=== PATIENT | male | born 1970 | race Hispanic/Latino ===

== ENCOUNTER 2017-12-14 12:51 | Observation (INO) | payer OTHER ==
[~2017-12-14] VITALS: Ht 160 cm; Wt 101.1 kg
[2017-12-14 13:18] LABS: BASOPHILS % (AUTO) 0.1 % (0.0-5.0); EOSINOPHILS % (AUTO) 2.6 % (0.0-8.0); HEMATOCRIT 45.1 % (42-54); LYMPHOCYTES % (AUTO) 25.9 % (21.0-51.0); MEAN CORPUSCULAR HEMOGLOBIN 31.8 pg (27.0-33.0); MEAN CORPUSCULAR HGB CONC 34.1 g/dL (32.0-36.0); MEAN CORPUSCULAR VOLUME 93.2 fL (79-99); MONOCYTES % (AUTO) 8.5 % (3.0-13.0); NEUTROPHILS % (AUTO) 62.9 % (40.0-77.0); PLATELET COUNT (AUTO) 190 K/uL (130-400); RED BLOOD CELL COUNT(AUTO) 4.84 MIL/uL (4.50-6.20)
[2017-12-14 13:29] LABS: CREATININE 0.9 mg/dL (0.5-1.5); POTASSIUM 3.7 mmol/L (3.5-5.1)
[2017-12-14 13:42] LABS: INR 0.95 (0.85-1.15); PARTIAL THROMBOPLASTIN TIME 22.8 SEC (26.3-35.5); PROTHROMBIN TIME 9.8 SEC (9.6-11.6)
[2017-12-14 13:43] LABS: ALBUMIN 3.9 g/dL (3.5-5.0); BILIRUBIN,TOTAL 0.3 mg/dL (0.2-1.0); TOTAL PROTEIN, SERUM 8.4 g/dL (6.0-8.3)
[2017-12-14] MEDS ORDERED: SODIUM CHLORIDE 0.9% 1000ML 1,000 ML IV ONE (14:27)
[2017-12-14] MEDS ORDERED: ONDANSETRON HCL MDV 20ML 2 MG/ML VIAL IV PRN (15:45)
[2017-12-14] MEDS ORDERED: MECLIZINE HCL 25 MG TABLET PO PRN (15:45)
[2017-12-14] MEDS ORDERED: HYDRALAZINE HCL 20 MG/ML VIAL IV PRN (15:45)
[2017-12-14] MEDS ORDERED: ACETAMINOPHEN 325 MG TAB PO PRN (15:45)
[2017-12-14] MEDS ORDERED: LACTULOSE 20 GM/30 ML UDCUP PO PRN (15:45)
[2017-12-14] MEDS ORDERED: SODIUM CHLORIDE 0.9% 1000ML 1,000 ML IV SCH (16:45)
[2017-12-14 17:16] LABS: APPEARANCE,URINE Clear (CLEAR); BILIRUBIN,URINE Negative (NEGATIVE); COLOR,URINE Yellow (YELLOW); GLUCOSE, URINE (UA) Negative (NEGATIVE); KETONES,URINE Trace mg/dL (NEGATIVE); LEUKOCYTE ESTERASE ,URINE Negative (NEGATIVE); NITRATE,URINE Negative (NEGATIVE); OCCULT BLOOD,URINE Negative (NEGATIVE); PH,URINE 5.5 (5.0-8.0); PROTEIN,URINE Negative (NEGATIVE)
[2017-12-14 19:35] VITALS: BP 138/78
[2017-12-14 19:37] VITALS: BP 141/85
[2017-12-14 19:39] VITALS: BP 143/85
[2017-12-14] MEDS: FAMOTIDINE 20MG TAB 20 MG TAB PO SCH (20:55)
[2017-12-14 23:45] VITALS: BP 136/83
[2017-12-15 03:20] LABS: HEMATOCRIT 41.3 % (42-54); MEAN CORPUSCULAR HEMOGLOBIN 32.2 pg (27.0-33.0); MEAN CORPUSCULAR HGB CONC 34.1 g/dL (32.0-36.0); MEAN CORPUSCULAR VOLUME 94.3 fL (79-99); PLATELET COUNT (AUTO) 147 K/uL (130-400); RED BLOOD CELL COUNT(AUTO) 4.37 MIL/uL (4.50-6.20); RED CELL DISTRIBUTION WIDTH 14.5 % (11.0-15.5); WHITE BLOOD COUNT (AUTO) 7.8 K/uL (4.8-10.8)
[2017-12-15 03:41] LABS: CARBON DIOXIDE 32 mmol/L (21-32); CHLORIDE 106 mmol/L (101-111); CHOLESTEROL 144 mg/dL (<200); CREATINE KINASE MB 3.1 ng/mL (0.5-3.6); CREATINE KINASE, TOTAL 175 U/L (21-232); CREATININE 0.8 mg/dL (0.5-1.5); GLOMERULAR FILTR. RATE CALC 110 mL/min (>60); GLUCOSE,RANDOM 122 mg/dL (70-105); HDL CHOLESTEROL 74 mg/dL (29-71); LDL DIRECT 73 mg/dL (0-99); MYOGLOBIN 27 ng/mL (10-92); POTASSIUM 3.9 mmol/L (3.5-5.1); SODIUM SERUM 144 mmol/L (136-145); TRIGLYCERIDES 47 mg/dL (30-200); TROPONIN I < 0.04 ng/mL (0.00-0.06); UREA NITROGEN, BLOOD 12 mg/dL (7-18)
[2017-12-15 03:44] LABS: HEMOGLOBIN A1C 5.7 % (4.0-6.0)
[2017-12-15 03:45] VITALS: BP 142/81
[2017-12-15 08:06] VITALS: BP 143/92
[2017-12-15] MEDS: FAMOTIDINE 20MG TAB 20 MG TAB PO SCH (10:39)
[2017-12-15 11:51] VITALS: BP 135/98
[2017-12-15 11:52] VITALS: BP 145/86
[2017-12-15 11:53] VITALS: BP 143/94
[2017-12-15 15:21] VITALS: BP 126/87
== END 2017-12-15 17:00 | disposition home or self-care (01) ==
LOC: EDH 12:51 → EDHIP 15:45 → 3AH 19:23
PROVIDERS: ADMIT Family Medicine; ATTEND Family Medicine
DX: I95.1 Orthostatic hypotension (principal); R42 Dizziness and giddiness; E11.9 Type 2 diabetes mellitus without complications; E66.9 Obesity, unspecified; F17.210 Nicotine dependence, cigarettes, uncomplicated
CPT/HCPCS: 36415 ×2; 70450; 71046; 80048; 80053; 80061; 81003; 82140; 82150; 82550 ×2; 82553 ×2; 83036; 83690; 83735; 83874; 84484 ×2; 85025; 85027; 85610; 85730; 93005 ×2; 93306; 93880; 96360; 96361 ×2; 99285; G0378 ×25; G0480; J7030

== ENCOUNTER 2024-08-10 09:39 | Emergency (ER) | payer BC, OTHER ==
[~2024-08-10] VITALS: Ht 152.4 cm; Wt 99.8 kg
--- NOTE | 2024-08-10 10:41 | HMCIMG ---
RIBS UNI LT W PA CHEST 3+VWS REASON: POSSIBLE FOREIGN BODY. COMPARISON: None TECHNIQUE: Frontal projection of the chest was obtained. 3 images of left ribs were obtained. FINDINGS: No acute pulmonary infiltrates is seen. The heart is borderline in size. Prominent interstitial markings are seen. No acute displaced fracture is seen. Degenerative changes are seen. No evidence of radiopaque foreign body is seen. Clinical correlation is recommended. IMPRESSION: Findings at described above.
--- NOTE | 2024-08-10 11:09 | HMCIMG ---
FOOT COMP 3+VWS LT HISTORY: Trauma COMPARISON: None TECHNIQUE: 3 images of left foot were obtained FINDINGS: There is no acute displaced fracture or dislocation. There is soft tissue swelling. Vascular calcifications are seen. Degenerative changes are seen. Degenerative changes are seen. IMPRESSION: 1. Findings as described above.
[2024-08-10 11:12] VITALS: BP 148/89; PULSE 87; RESP 16; TEMP 97.9; O2SAT 97
[2024-08-10] MEDS ORDERED: SULF1TAB42 PO (11:30)
--- NOTE | 2024-08-10 11:32 | ERN ---
General Chief Complaint: Mechanical Fall Stated Complaint: LEFT RIB PAIN, LEFT FOOT WOUND Time Seen by MD: 09:59 Time Seen by Midlevel: 09:59 Source: patient History of Present Illness Initial Comments Patient is a 53-year-old male presenting to the emergency department with two complaints. The primary concern is pain to the plantar aspect of the left foot. Patient states two weeks ago he was cleaning brush when he accidentally punctured himself with an unknown object. He states the pain progressively got worse along with some mild swelling to the area. He has been unable to walk secondary to pain so yesterday he sustained a mechanical ground level fall landing on his left side. He was reporting pain to the left side of his chest wall. He denies any shortness of breath, or any other symptoms at this time. Denies head injury. Denies being on any blood thinners. Allergies: Coded Allergies: No Known Drug Allergies (Verified Allergy, Unknown, 12/14/17) Home Meds No Active Prescriptions or Reported Meds Past Medical History Past Medical History: Diabetes-Type II, High Cholesterol, Hypertension, Stroke Past Surgical History: None ROS Dictation CONSTITUTIONAL: Negative except for HPI HEAD/FACE: Negative except for HPI EENT: Negative except for HPI RESPIRATORY: Negative except for HPI GASTROINTESTINAL/ABDOMINAL: Negative except for HPI GENITOURINARY: Negative except for HPI MUSCULOSKELETAL: Negative except for HPI INTEGUMENTARY: Negative except for HPI NEUROLOGICAL/PSYCH: Negative except for HPI HEMATOLOGIC/LYMPHATIC: Negative except for HPI All Systems Negative, Except as noted above. 13 point review of systems assessed and all negative except for above. Physical Exam Physical Exam Dictation Vital Signs reviewed General Appearance: Alert, oriented x 3, no acute distress, well developed, nourished. Head and Face: non-traumatic. Eyes: PERRL, pink conjunctivas, eyelid no trauma, anterior chamber with arcus senilis. Ears: Pinnas intact and no signs of trauma or erythema ear canals clear and no discharge TM no erythema Nose: No discharge, no bleeding. Oropharynx: Mouth normal, tongue pink, pharynx clear,no erythema, tonsils no exudates, no abscesses noted, mucous membrane moist Neck: Supple, non-tender, no thyromegaly, no masses, no JVD, no bruits Breast:Deferred Chest:No tenderness, no crepitus, no paradoxical movement, no retractions Lungs:Clear, well-ventilated, symmetric, no rales, no wheezing, no rhonchi, no stridor, good breath sounds bilaterally Heart: Regular rate, regular rhythm, no murmur, no gallops Vascular: no peripheral edema, Abdomen: Soft, positive bowel sounds, nondistended, no guarding, nontender, no rebound, no masses no hepatomegaly, no splenomegaly, no Miller's sign, no hernias. Rectal: Deferred Genital: Deferred Neurological: Normal speech, motor function intact, sensory function intact Musculoskeletal: Neck nontender, full range of motion, back nontender, full range of motion, Extremities: nontender, full range of motion Skin: Puncture wound to the plantar aspect of the left foot, there was no surrounding erythema or drainable abscess at this time Lymphatic: Deferred MDM MDM: Patient is a 53-year-old male presenting to the emergency department with two complaints. The primary concern is pain to the plantar aspect of the left foot. Patient states two weeks ago he was cleaning brush when he accidentally punctured himself with an unknown object. He states the pain progressively got worse along with some mild swelling to the area. He has been unable to walk secondary to pain so yesterday he sustained a mechanical ground level fall landing on his left side. He was reporting pain to the left side of his chest wall. He denies any shortness of breath, or any other symptoms at this time. Denies head injury. Denies being on any blood thinners. On physical exa mination patient has some mild chest wall tenderness to the left side. Breath sounds are present equally bilaterally. Patient is in no acute respiratory distress. There is a small puncture wound to the plantar aspect of the left foot with no surrounding erythema, induration, or drainable abscess. An x-ray of the chest/ribs do not reveal any acute injury. His left foot x-ray does not reveal any acute fractures. Patient was given a tetanus vaccination along with Rocephin IM and will be discharged home with antibiotics to prevent infection. Patient was advised to follow up with his doctor in 2-3 days for repeat evaluation. If he does not improve over the next 3-4 days he was advised to return to the ER for repeat evaluation. Differential diagnosis: Puncture wound, cellulitis, abscess, rib fracture, pneumothorax There are no social concerns with this patient. Prescription drug management Prescriptions will include: Bactrim Medical management and examination interpretation discussions were had by me w ith other qualified healthcare professionals as indicated for the patient's care. ED Course Orders Procedure Category Date Status Time Foot Comp 3+Vws Lt RAD 08/10/24 Resulted 09:50 Tetanus,Diphtheria PHA 08/10/24 Complete Tox [Adult] (Diphther 10:30 Ribs Uni Lt W Pa RAD 08/10/24 Resulted Chest 3+Vws 09:50 Ceftriaxone 1g Vial PHA 08/10/24 Complete (Rocephine 1g Inj) 10:30 Current Medications Medications (Trade) Dose Ordered Sig/Jonathon Route PRN Reason Start Time Stop Time Status Last Admin Dose Admin Ceftriaxone Sodium (ROCEphine 1G INJ) 1 gm ONCE ONCE IM 08/10/24 10:30 08/10/24 10:31 DC Tetanus/ Diphtheria Toxoids Adsorbed (DiphthERIA-teTANUS TOXOID [ADULT]/ DECAVAC) 0.5 ml ONCE ONCE IM 08/10/24 10:30 08/10/24 10:31 DC Vital Signs Date Time Temp Pulse Resp B/P (MAP) Pulse Ox O2 Delivery O2 Flow Rate FiO2 08/10/24 11:12 97.9 87 16 148/89 97 Room Air* 0 08/10/24 09:41 97.9 87 16 148/89 97 Room Air [address] [address] IMAGING REPORT Signed PATIENT: BRENT GALARZA MR#: [id number] : 1970 SEX: M AGE: 53 LOCATION: [facility] ORDER STATUS: REG ER [facility] REPORT#: [id number] SERVICE 0950 REASON: POSSIBLE FOREIGN BODY ORDERING PHYSICIAN: JAYESH MINER MD PROCEDURE: RIB LT W C - RIBS UNI LT W PA CHEST 3+VWS RIBS UNI LT W PA CHEST 3+VWS REASON: POSSIBLE FOREIGN BODY. COMPARISON: None TECHNIQUE: Frontal projection of the chest was obtained. 3 images of left ribs were obtained. FINDINGS: No acute pulmonary infiltrates is seen. The heart is borderline in size. Prominent interstitial markings are seen. No acute displaced fracture is seen. Degenerative changes are seen. No evidence of radiopaque foreign body is seen. Clinical correlation is recommended. IMPRESSION: Findings at described above. DICTATED BY: CHRISSY FUNEZ MD DATE: 08/10/24 103 ELECTRONICALLY SIGNED BY: CHRISSY FUNEZ MD DATE: 08/10/24 104 [place] [address] [place] [address] IMAGING REPORT Signed PATIENT: BRENT GALARZA MR#: [id number] : 1970 SEX: M AGE: 53 LOCATION: [facility] ORDER 1 STATUS: REG ER REPORT#: [id number] SERVICE REASON: POSSIBLE FOREIGN BODY ORDERING PHYSICIAN: JAYESH MINER MD PROCEDURE: FT 3VW LT - FOOT COMP 3+VWS LT FOOT COMP 3+VWS LT HISTORY: Trauma COMPARISON: None TECHNIQUE: 3 images of left foot were obtained FINDINGS: There is no acute displaced fracture or dislocation. There is soft tissue swelling. Vascular calcifications are seen. Degenerative changes are seen. Degenerative changes are seen. IMPRESSION: 1. Findings as described above. DICTATED BY: CHRISSY FUNEZ MD DATE: 08/10/241105 ELECTRONICALLY SIGNED BY: CHRISSY FUNEZ MD DATE: 08/10/241108 DX & DISP Disposition: Discharge Departure Impression: Primary Impression: Chest wall contusion Additional Impression: Puncture wound of left foot Condition: Stable Scripts Sulfamethoxazole/Trimethoprim (Bactrim Ds Tablet) 800 Mg-160 Mg Tablet 1 TAB PO BID for 7 Days, #14 TAB 0 Refills Prov: EDU BARRAZA 08/10/24 Additional Instructions: Your chest and rib x-ray are negative for any acute injury. Your left foot x-ray does not show any evidence of a fracture. You were given a tetanus vaccination as well as an injection for antibiotics in the emergency department. I have given you a prescription for Bactrim for outpatient management. Of follow up with your doctor in the next 24-48 hours for repeat evaluation. If you do not improve over the next 3-4 days please return to the ER for repeat evaluation. Referrals: SELF,REFERRAL (PCP) Time of Disposition: 11:27 I have reviewed the case, and I agree with, Diagnosis and Plan EDU BARRAZA Aug 10, 2024 11:32
[2024-08-10] MEDS: cefTRIAXone 1G VIAL IM ONE (11:42)
[2024-08-10] MEDS: teTANUS/diphthERIA TOXOID [ADULT] 0.5 ML VIAL IM ONE (11:44)
== END 2024-08-10 11:50 | disposition home or self-care (01) ==
LOC: EDH 09:39
DX: S20.219A Contusion of unspecified front wall of thorax, initial encounter (principal); S91.332A Puncture wound without foreign body, left foot, initial encounter; E11.9 Type 2 diabetes mellitus without complications; E78.00 Pure hypercholesterolemia, unspecified; I10 Essential (primary) hypertension; Z86.73 Personal history of transient ischemic attack (TIA), and cerebral infarction without residual deficits; W26.9XXA Contact with unspecified sharp object(s), initial encounter; Y93.89 Activity, other specified; Y92.89 Other specified places as the place of occurrence of the external cause; Y99.8 Other external cause status
CPT/HCPCS: 99284; 90714; 73630; 71101; 96372; 90471; J0696